=== PATIENT | male | born 1985 | race Hispanic/Latino ===

== ENCOUNTER 2017-09-30 10:12 | Emergency (ER) | payer OTHER ==
[~2017-09-30] VITALS: Ht 188 cm; Wt 86.4 kg
[2017-09-30 10:13] VITALS: BP 143/89
[2017-09-30] MEDS ORDERED: LIDOCAINE 1% MDV 20ML VIAL IM ONE (10:45)
[2017-09-30] MEDS ORDERED: KEFL500C17 PO (11:15)
== END 2017-09-30 11:27 | disposition home or self-care (01) ==
LOC: M ED 10:12
DX: S60.450A Superficial foreign body of right index finger, initial encounter (principal); W45.8XXA Other foreign body or object entering through skin, initial encounter; Y92.009 Unspecified place in unspecified non-institutional (private) residence as the place of occurrence of the external cause; Y93.89 Activity, other specified; Y99.8 Other external cause status